=== PATIENT | male | born 1950 | race Caucasian/White ===

== ENCOUNTER 2016-12-27 15:24 | Inpatient (IN) ==
[2016-12-27] MEDS ORDERED: ASPIRIN PO STA (15:42)
[2016-12-27 15:55] LABS: MANUAL DIFF NEEDED? NO
[2016-12-27 15:57] LABS: BASO% 0.2 % (0.0-0.8); EOS% 3.1 % (0.0-10.0); HEMATOCRIT 40.6 % (42.0-52.0); HEMOGLOBIN 13.7 g/dL (14.0-18.0); IMM GRAN# 0.04 X1000 (0.0-0.04); IMM GRAN% 0.3 % (0.0-0.5); MCH 31.5 PG (27-31); MCHC 33.7 g/dL (33-37); MCV 93.3 FL (81-99); MONO# 1.33 X1000 (0.11-0.59); MONO% 10.2 % (1.7-9.3); MPV 9.6 FL (7.4-10.4); NEUT% 66.2 % (42.2-75.2); PLT 373 X1000 (130-400); RBC 4.35 XMIL (4.7-6.1)
--- NOTE | 2016-12-27 16:10 | EKG Report ---
Test Performed on : 12/27/2016 3:44:45 PM Test Reason : ABNORMAL LABS Blood Pressure : / mmHG Vent. Rate : 101 BPM Atrial Rate : 101 BPM P-R Int : 152 ms QRS Dur : 084 ms QT Int : 370 ms P-R-T Axes : -06 -26 123 degrees QTc Int : [address] \T\ T wave abnormality, consider lateral ischemia Abnormal ECG When compared with ECG of 02-SEP-2016 01:55, T wave inversion now evident in Lateral leads Unconfirmed Result
[2016-12-27 16:11] LABS: INR 0.96; PTT 32.3 Seconds (22.0-36.0)
[2016-12-27 16:25] LABS: AGAP 24; ALBUMIN 3.8 g/dL (3.5-5.0); ALKALINE PHOSPHATASE 123 U/L (32-122); BUN 14 mg/dL (8-22); CALCIUM 9.1 mg/dL (8.8-10.2); CHLORIDE 94 mmol/L (98-107); CK PROFILE 194 U/L (24-204); COSMO 279; GOT 51 U/L (10-34); GPT 67 U/L (10-44); MAGNESIUM 1.8 mg/dL (1.5-2.7); POTASSIUM 3.5 mmol/L (3.5-5.1); SODIUM 135 mmol/L (136-145); TCO2 17 mmol/L (25-35); TOTAL BILIRUBIN 0.23 mg/dL (0.20-1.00); TOTAL PROTEIN 7.4 g/dL (6.3-8.3)
--- NOTE | 2016-12-27 16:41 | Diag Imaging Result Document ---
PROCEDURE NAME: CHEST-2 VIEWS - 12/27/2016 CHEST, TWO VIEWS: INDICATION: Chest pain. COMPARISON: 09/02/2016. FINDINGS: There is cardiomegaly. There is mild fibrosis. The pulmonary vasculature is not congested. No acute infiltrates or effusions are identified. IMPRESSION: 1. Stable cardiomegaly. 2. Mild fibrosis.
[2016-12-27] MEDS ORDERED: LOVENOX 1 MG/KG SUBQ ONE (17:24)
--- NOTE | 2016-12-27 17:24 | PROVIDER DOCUMENTATION ---
This chart was entered by Sudhir Rodrigez Scribe, acting as scribe for Jay Silva MD. HPI-Chest Pain - General Chief Complaint: Abnormal Lab[s] Stated Complaint: ABNOMAL LAB Time Seen by Provider: 12/27/16 16:50 Source: patient Allergies/Adverse Reactions: Patient Allergies Allergy/AdvReac Type Severity Reaction Status Date / Time Penicillins Allergy Mild RASH Verified 12/27/16 16:38 Home Medications: Home Medication List Medication Instructions Recorded Confirmed Last Taken Type Metformin HCl 850 mg PO BID 08/19/13 12/27/16 12/27/16 History Topiramate [Topamax] 50 mg PO BID 08/19/13 12/27/16 12/27/16 History Hydrocodone/Acetaminophen [[place] 1 each PO BID 09/02/14 12/27/16 12/27/16 History 7.5-325 Tablet] Gabapentin [Neurontin] 400 mg PO TID 05/23/15 12/27/16 12/27/16 History Lisinopril/Hydrochlorothiazide 1 each PO DAILY 05/23/15 12/27/16 12/27/16 History [Lisinopril-Hctz 20-12.5 mg Tab] Phenytoin Sodium Extended 200 mg PO BID 09/02/16 12/27/16 12/27/16 History - History of Present Illness-CP Nature of Presenting Problem: patient is a 66 y/o M that presents after having 3 days of chest pain with tingling down bilateral arms. He reports having some nausea and shortness of breath with it. patient has no symptoms today. He went to pcp and he was sent here due to abnormal labs and irregular heart rate. Patient has history HTN, CVA , Diabetes, and 1ppd smoker Location: reports: substernal Chest Pain Radiation: reports: arms (bilateral arms) Severity in ED: moderate Onset/Duration: abrupt, 3 days ago Timing: gone now Context/Activities at Onset: reports: none Modifying Factors: improves with: nothing Associated Symptoms: reports: nausea, shortness of breath. denies: abdominal pain, diaphoresis, dizziness, fever/chills, headache, vomiting Nitro Today/Relief: no nitro taken today Aspirin Treatment Today: 325 mg x 1, provided by ED Similar Symptoms Previously?: No Recently Seen Here or By Another Healthcare Provider: Yes Review of Systems - Adult - REVIEW OF SYSTEMS - ADULT Constitutional: reports: no symptoms reported Eyes: reports: no symptoms reported Ears, Nose, Mouth & Throat: reports: see HPI Cardiovascular: reports: see HPI Respiratory: reports: no symptoms reported Gastrointestinal: reports: no symptoms reported Musculoskeletal: reports: no symptoms reported Integumentary: reports: no symptoms reported Neurological: reports: no symptoms reported Psychiatric: reports: no symptoms reported Endocrine: reports: no symptoms reported, excessive sweating Allergic/Immunologic: reports: no symptoms reported All Other Systems: Reviewed and Negative Past History - Adult - PAST MEDICAL HISTORY-ADULT Review of Records: reports: Old Records Reviewed, Nursing Assessment Review, Medications Reviewed Cardiovascular: reports: HTN Musculoskeletal: reports: arthritis, chronic pain (leg pain) Neurological: reports: CVA, headaches/migraines, Seizures/Epilepsy, other ( brain aneurysm) Endocrine/Immune: reports: Diabetes Other Conditions: reports: skin disorder (skin cancer) - PRIOR SURGERIES/PROCEDURES Surgical/Procedure History: reports: orthopedic (extremity) (Right arm, right leg, left knee) - IMMUNIZATION STATUS Childhood Immunizations: UTD Flu Vaccine: NUTD - FAMILY HISTORY Family History: reviewed, not pertinent - SOCIAL HISTORY Smoking: cigarettes, less than 1 pack/day Living Situation: alone Physical Exam-General - PHYSICAL EXAM-ADULT Initial Vital Signs Reviewed: Yes - CONSTITUTIONAL General Appearance: alert, no apparent distress - EYES Eyes: PERRL/EOMI, pink conjunctivae - HEAD, EARS, NOSE, MOUTH & THROAT HENMT: normocephalic/atraumatic, moist mucous membranes, normal ENT inspection - NECK Neck: non-tender, full range of motion, normal inspection - RESPIRATORY Respiratory: lungs clear, normal breath sounds, no respiratory distress, no accessory muscle use - CARDIOVASCULAR Cardiovascular: regular rate, rhythm, no edema, no murmur - GASTROINTESTINAL (ABDOMEN) Abdominal Exam: normal bowel sounds, non tender, soft - MUSCULOSKELETAL Extremity: normal range of motion, normal inspection, no pedal edema - SKIN Integumentary: normal color, warm/dry - NEUROLOGIC Neurologic: grossly normal, no motor/sensory deficits - PSYCHIATRIC Psych/Mental Status: normal mood/affect, normal thought content, normal thought process, oriented x 3 Progress - PLAN OF CARE/RESULTS Progress/Plan/Lab Results: Vital Signs - 8 hr 12/27/16 15:34 Temperature 97.5 F L Pulse Rate 104 H Respiratory Rate 20 Blood Pressure 125/67 O2 Sat by Pulse Oximetry 97 Laboratory Results - last 24 hr 12/27/16 12/27/16 12/27/16 15:38 15:38 15:38 WBC 12.99 H RBC 4.35 L Hgb 13.7 L Hct 40.6 L MCV 93.3 MCH 31.5 H MCHC 33.7 RDW Std Deviation 14.1 Plt Count 373 MPV 9.6 Immature Gran % (Auto) 0.3 Neut % (Auto) 66.2 Lymph % (Auto) 20.0 L Wells % (Auto) 10.2 H Eos % (Auto) 3.1 Baso % (Auto) 0.2 Immature Gran # (Auto) 0.04 Neut # (Auto) 8.60 H Lymph # (Auto) 2.60 Wells # (Auto) 1.33 H Eos # (Auto) 0.40 Baso # (Auto) 0.02 PT INR PTT (Actin FS) D-Dimer 0.32 Sodium 135 L Potassium 3.5 Chloride 94 L Carbon Dioxide 17 L Anion Gap 24 BUN 14 Creatinine 0.8 Estimated GFR/1.73 m2 > 60 BUN/Creatinine Ratio 18 Glucose 249 H Calculated Osmolality 279 Calcium 9.1 Magnesium 1.8 Total Bilirubin 0.23 AST 51 H ALT 67 H Alkaline Phosphatase 123 H Creatine Kinase 194 Troponin T [id number]-[id number] Pept Total Protein 7.4 Albumin 3.8 Globulin 3.6 Albumin/Globulin Ratio 1.1 12/27/16 12/27/16 12/27/16 15:38 15:38 15:38 WBC RBC Hgb Hct MCV MCH MCHC RDW Std Deviation Plt Count MPV Immature Gran % (Auto) Neut % (Auto) Lymph % (Auto) Wells % (Auto) Eos % (Auto) Baso % (Auto) Immature Gran # (Auto) Neut # (Auto) Lymph # (Auto) Wells # (Auto) Eos # (Auto) Baso # (Auto) PT 10.0 INR 0.96 PTT (Actin FS) 32.3 D-Dimer Sodium Potassium Chloride Carbon Dioxide Anion Gap BUN Creatinine Estimated GFR/1.73 m2 BUN/Creatinine Ratio Glucose Calculated Osmolality Calcium Magnesium Total Bilirubin AST ALT Alkaline Phosphatase Creatine Kinase Troponin T 1.100 H* [id number] Pept 1238 H Total Protein Albumin Globulin Albumin/Globulin Ratio Orders Category Date Time Status Cardiac Monitoring DIRECTED Care 12/27/16 15:42 Active Oxygen Therapy- ED Nursing DIRECTED Care 12/27/16 15:42 Active Saline Loc NOW Care 12/27/16 15:42 Active CHEST-2 VIEWS [RAD] Stat Exams 12/27/16 15:42 Completed CBC WITH ELECTRONIC DIFF [HEME] Stat Lab 12/27/16 15:38 Completed CK PROFILE [SP CHEM] Stat Lab 12/27/16 15:38 Completed COMPREHENSIVE METABOLIC PANEL [CHEM] Stat Lab 12/27/16 15:38 Completed D-DIMER [CHEM] Stat Lab 12/27/16 15:38 Completed MAGNESIUM [CHEM] Stat Lab 12/27/16 15:38 Completed PRO B-NATRIURETIC PEPTIDE Stat Lab 12/27/16 15:38 Completed PROTIME WITH INR [COAG] Stat Lab 12/27/16 15:38 Completed PTT [COAG] Stat Lab 12/27/16 15:38 Completed TROPONIN T Stat Lab 12/27/16 15:38 Completed Aspirin Med 12/27/16 15:42 Discontinued 325 mg PO STAT STA EKG [EKG] Stat Ther 12/27/16 15:42 Draft Result Diagrams: 12/27/16 15:38 12/27/16 15:38 - XRAY 1 XRAY Study: Chest Impression: Abnormal XRAY Interpretation: mild CMG, fibrosis - CONSULTS/PCP/HOSPITALIST Notification #1 *Consult/PCP/Hospitalist*: Time Discussed: 17:12 Reason/Comments: will consult, admit to hospitalist Consult Disposition: Admit Departure - Departure Time of Disposition Decision: 17:22 DIAGNOSIS: Myocardial infarction Disposition: ADMITTED INPATIENT 09 Certified Medical Emergency: Emergent Condition: Stable Referrals and Follow-Ups: Aimee Ferreira CRNP [Primary Care Provider] - Attestation - Physician/ JESSICA Attestation Patient care was provided by Advanced Practice Provider:: Yes Advanced Practice Provider documentation review:: The Mid-level provider documentation, treatment plan and medical decision making was reviewed by the physician who agrees with all treatment and medical decision making by the MLP. The physician spent face to face time with patient:: Yes Advanced Practice Provider documentation review:: The physician spent face to face time with this patient and agrees with all MLP documentation, treatment, and medical decision making by the MLP. See provider notes for further information. This chart was documented by the indicated scribe, (Sudhir Rodrigez, Scribe) and accurately reflects the services I performed and decisions made by , Jay Silva MD, as attested by the provider's signature.
[2016-12-27] MEDS ORDERED: LOVENOX SUBQ ONE (17:45)
--- NOTE | 2016-12-27 17:50 | ED EKG INTERP ---
This chart was entered by Sudhir Rodrigez Scribe, acting as scribe for Jay Silva MD. EKG Interpretation - EKG Time of EKG reading by physician:: 15:44 EKG Read and Signed by:: Jay Silva EKG Interpretation (*Must complete 3 of following elements*): Abnormal Rate: 101 Rhythm: Sinus tachycardia Dagmar: normal QRS: normal KS Interval: normal ST Wave: non-specific ST changes This chart was documented by the indicated scribe, (Sudhir Rodrigez Scribe) and accurately reflects the services I performed and decisions made by Shira russell Christophe I, MD, as attested by the provider's signature.
[2016-12-27] MEDS ORDERED: DUONEB (A & A) INH PRN (18:05)
[2016-12-27] MEDS: LOVENOX SUBQ SCH (18:11)
[2016-12-27 18:42] LABS: ACETAMINOPHEN < 1.2 ug/mL (10-30); HEMOGLOBIN A1C 7.2 % (4.8-6.0)
[2016-12-27 18:52] LABS: FREE T4 1.11 ng/dL (0.93-1.70)
--- NOTE | 2016-12-27 18:53 | HISTORY AND PHYSICAL ---
PRIMARY CARE PHYSICIAN: DANG Francisco CHIEF COMPLAINT: Chest pain. HISTORY OF PRESENT ILLNESS: Mr. Javier is a 66-year-old, male with a significant medical history of intracranial hemorrhage, status post craniotomy 5 years ago at [facility], also with a history of nicotine dependence, hypertension, diabetes mellitus, seizure disorder, diabetic neuropathy, who presents with 4 days of chest pain. Symptoms began on Monday, at rest he had sudden onset of midsternal chest pressure radiating into the jaw lasting 15-20 minutes at a time, roughly 4-5 times a day. Each episode was associated with nausea, but no vomiting, shortness of breath or diaphoresis. He denies that the symptoms worsened with every episode. He went to his primary care on Monday who called him back today and told him he needed to come to the ER after blood work was drawn yesterday. He denies any neurologic complaints. He does report worsening lower extremity edema over the past 3 months. He has also had worsening shortness of breath and difficulty breathing at night when he sleeps. When he got to the ER labs and diagnostics were done, he had a critical troponin of 1.1 with a slightly elevated CK. He was also noted to have a fairly significant metabolic anion gap acidosis and leukocytosis. He denies any fevers or chills, his EKG shows sinus rhythm with nonspecific ST changes in the lateral leads. Cardiology has been consulted and full dose anticoagulation has been started with the diagnosis of NSTEMI. PAST MEDICAL HISTORY: 1. Intracranial hemorrhage secondary to aneurysm. 2. Status post craniotomy roughly 5 years ago. 3. Nicotine dependence. 4. Hypertension. 5. Diabetes mellitus. 6. Diabetic neuropathy. 7. Seizures. 8. Skin cancer. PAST SURGICAL HISTORY: He has had multiple orthopedic surgeries and a craniotomy with brain aneurysm clipping 4-5 years ago. SOCIAL HISTORY: The patient continues to smoke upwards of a pack a day. He has a remote history of alcohol dependence. He has not had alcohol in multiple years. He denies illicit drug use. He is and lives alone. FAMILY HISTORY: Significant for hypertension. REVIEW OF SYSTEMS: Fourteen-point review of systems obtained and found to be negative with the exception of the HPI. MEDICATIONS: Neurontin 400 mg p.o. t.i.d., Adrian as directed, lisinopril/hydrochlorothiazide 1 daily, metformin 850 mg b.i.d., phenytoin 200 mg b.i.d., Topamax 50 mg b.i.d. ALLERGIES: Penicillin. PHYSICAL EXAMINATION: VITAL SIGNS: Blood pressure is 113/69, heart rate 98, respiratory rate is 25, O2 saturation 97% on room air. Temperature is 97.5 degrees. GENERAL: This is an overweight, male, lying in hospital bed in no acute distress. NEUROLOGIC: The patient is awake, alert, oriented. He follows commands without focal deficits. HEENT: Head is atraumatic and normocephalic. His pupils are equal, round, reactive to light. His oral mucosa is moist. Trachea is midline. No JVD. CHEST: Diminished at the bases, but clear to auscultation bilaterally. CARDIOVASCULAR: Regular rate and rhythm. S1-S2 is noted. No murmurs. GI: Soft, nondistended, nontender. Bowel sounds positive. EXTREMITIES: With trace to 1+ pedal edema bilaterally. Pulses palpable, but diminished. DIAGNOSTIC DATA: EKG shows normal sinus rhythm with nonspecific ST and T abnormalities in the lateral leads, as well as the anterior leads. Chest x-ray shows stable cardiomegaly with mild fibrosis. LABORATORY DATA: WBC 12.99, hemoglobin 13.7, hematocrit 40.6, platelet count 373,000. PT 10, INR 0.96, D-dimer 0.32, sodium 135, potassium 3.5, chloride 94, CO2 17, anion gap 24, BUN 14, creatinine 0.8, glucose 249, calcium 9.1, magnesium 1.8. AST 51, ALT 67, alkaline phosphatase 123, CK 194, troponin 1.1. ProBNP 1238. Albumin 3.8. ASSESSMENT AND PLAN: 1. [id number] myocardial infarction: Patient will be admitted to the cardiac intensive care unit, we will start Lovenox 1 mg/kg b.i.d. We will also give aspirin full dose daily as well as metoprolol 12.5 mg b.i.d. Cardiology has been consulted. The patient will be nothing per oral after midnight in anticipation of left heart catheterization in the morning. We will monitor telemetry serial enzymes and electrocardiograms. Echocardiogram has also been ordered. 2. Congestive heart failure: Patient has a history consistent with congestive heart failure, including lower extremity edema, paroxysmal nocturnal dyspnea and orthopnea. We will check an echocardiogram and monitor strict input and output and daily weights. His lungs are clear. His chest x-ray does not show anything acute so we will hold off on the Lasix at this time. He is on lisinopril, which we will continue. 3. Significant metabolic anion gap acidosis: Unclear of the etiology at this time. We are going to check a lactic acid as well as acetone levels. He does have a blood sugar of 249 in the setting of AMI, diabetic ketoacidosis should be evaluated as well as lactic acidosis. I will trend the basic metabolic panel daily. 4. Leukocytosis: Likely reactive to his myocardial infarction, patient denies any fevers or chills. No cough with sputum expectoration. We will monitor this as well. 5. Diabetes mellitus: Pattern blood sugars and sliding scale insulin given likelihood of IV dye in the morning. We will hold off on the metformin, check a hemoglobin A1c and try to improve lifestyle modification. 6. Nicotine dependence: Patient has been highly advised to quit smoking. I will write a nicotine patch and continue daily counseling. 7. History of intracranial hemorrhage: Patient denies any neurologic symptoms. Exam is nonfocal. We will monitor this closely. 8. Deep venous thrombosis prophylaxis is provided with Lovenox. Further recommendations to follow. Dictated by DANG Coburn for Bertha Orlando MD cc: DANG Coburn MD Anna M. Dumas, CRNP
[2016-12-27] MEDS: DUONEB (A & A) INH SCH (19:05)
[2016-12-27] MEDS ORDERED: LIPITOR PO SCH (21:00)
[2016-12-27] MEDS ORDERED: HUMALOG SUBQ SCH (21:00)
[2016-12-28] MEDS: NORCO-7.5 PO SCH ×3 (00:25→19:02)
[2016-12-28] MEDS: DILANTIN PO SCH ×3 (00:26→19:02)
[2016-12-28] MEDS: NICODERM PATCH TD SCH ×3 (00:26→21:48)
[2016-12-28] MEDS: LOPRESSOR PO SCH ×3 (00:27→19:01)
[2016-12-28] MEDS: TOPAMAX PO SCH ×3 (00:27→19:01)
[2016-12-28] MEDS: HUMULIN R SUBQ SCH ×5 (00:27→21:48)
[2016-12-28] MEDS ORDERED: PNEUMOVAX 23 IM ONE (01:00)
[2016-12-28 01:12] LABS: URINE CULTURE NEEDED? NO; URINE MICRO REVIEW NEEDED? NO; URINE SOURCE CLEAN CATCH
[2016-12-28 01:15] LABS: BILIRUBIN URINE NEGATIVE (NEGATIVE); BLOOD URINE NEGATIVE (NEGATIVE); COLOR YELLOW; GLUCOSE URINE NEGATIVE (NEGATIVE); LEUKOCYTES URINE NEGATIVE (NEGATIVE); NITRITE URINE NEGATIVE (NEGATIVE); PROTEIN URINE NEGATIVE (NEGATIVE); TURBIDITY URINE CLEAR (CLEAR); UR EPITHELIAL CELLS <10 /HPF (<10); URINE BACTERIA NEGATIVE /HPF; URINE RBC <10 /HPF (<10); URINE WBC <10 /HPF (<10); UROBILINOGEN URINE NORMAL (NORMAL)
[2016-12-28] MEDS: DUONEB (A & A) INH SCH ×7 (03:32→23:09)
[2016-12-28 06:23] LABS: HEMATOCRIT 40.9 % (42.0-52.0); HEMOGLOBIN 13.6 g/dL (14.0-18.0); MCH 31.7 PG (27-31); MCHC 33.3 g/dL (33-37); MCV 95.3 FL (81-99); RBC 4.29 XMIL (4.7-6.1)
[2016-12-28] MEDS: LOVENOX SUBQ SCH ×2 (06:31→17:28)
--- NOTE | 2016-12-28 06:45 | EKG Report ---
Test Performed on : 12/28/2016 06:21:12 AM Test Reason : [place] Blood Pressure : / mmHG Vent. Rate : 085 BPM Atrial Rate : 085 BPM P-R Int : 148 ms QRS Dur : 086 ms QT Int : 390 ms P-R-T Axes : 001 -24 139 degrees QTc Int : 464 ms Normal sinus rhythm. Nonspecific ST and T wave abnormality Prolonged QT Abnormal ECG When compared with ECG of 27-DEC-2016 15:44, No significant change was found Confirmed by Bruce WELSH, Morgan Jacobson ([id number]) on 12/29/2016 6:21:13 PM
[2016-12-28 06:48] LABS: INR 0.96
[2016-12-28 06:53] LABS: AGAP 18; BUN 15 mg/dL (8-22); CALCIUM 9.3 mg/dL (8.8-10.2); CHLORIDE 98 mmol/L (98-107); COSMO 275; HDL 35 mg/dL (35-55); POTASSIUM 4.2 mmol/L (3.5-5.1); SODIUM 136 mmol/L (136-145); TCO2 20 mmol/L (25-35); TRIGLYCERIDES 688 mg/dL (39-160)
[2016-12-28] MEDS: NITROGLYCERIN TOP SCH ×3 (08:33→21:49)
[2016-12-28] MEDS: NEURONTIN PO SCH ×2 (08:33→17:27)
[2016-12-28] MEDS ORDERED: ASPIRIN PO SCH (09:00)
[2016-12-28] MEDS ORDERED: PRINIVIL PO SCH (09:00)
--- NOTE | 2016-12-28 09:05 | EKG Report ---
Test Performed on : 12/28/2016 07:54:30 AM Test Reason : SD Blood Pressure : / mmHG Vent. Rate : 087 BPM Atrial Rate : 087 BPM P-R Int : 156 ms QRS Dur : 086 ms QT Int : 402 ms P-R-T Axes : -22 -22 130 degrees QTc Int : 483 ms Normal sinus rhythm. ST \T\ T wave abnormality, consider anterolateral ischemia Prolonged QT Abnormal ECG When compared with ECG of 28-DEC-2016 06:21, (Unconfirmed) No significant change was found Confirmed by Bruce WELSH, Morgan Jacobson ([id number]) on 12/29/2016 6:21:45 PM
--- NOTE | 2016-12-28 09:42 | ECHO REPORT ---
ORDER DATE: 12/27/2016 PROCEDURE: Two-dimensional echocardiogram. DATE OF STUDY: 12/27/2016. ECHOCARDIOGRAPHIC MEASUREMENTS: 1. Interventricular septum 1.0. 2. Left ventricular posterior wall 1.1. 3. Diastolic diameter 5.3. 4. Left atrium 2.9. 5. Aorta 4. INTERPRETATION: 1. Aortic valve leaflets were trileaflet. 2. Mitral valve was normal. 3. Tricuspid valve was normal. 4. Pulmonic valve was normal. There is trace pulmonary regurgitation. 5. Normal left ventricular cavity size. Estimated ejection fraction of 55% to 60%. 6. Doppler studies revealed trace mitral regurgitation. 7. Mild tricuspid regurgitation. Peak velocity across the tricuspid valve was 2.3 m/sec. 8. There is no pericardial effusion or obvious intracardiac mass or thrombus. cc: MD Casey Hightower CRNP
--- NOTE | 2016-12-28 10:53 | CONSULTATION ---
DATE OF CONSULTATION: 12/28/2016 REFERRING PHYSICIAN: Hospitalist service. REASON FOR CONSULTATION: Chest pain, elevated troponins. HISTORY: Mr. Javier is a 66-year-old male who is known to our service. He presented to the emergency room yesterday, December 27, upon advice of his primary care provider because of abnormal EKG. The patient states that on December 24Monday, he started having pains in the center of the chest. They would come in waves of discomfort lasting 2-3 hours and then it would subside. He would feel weak, lightheaded, a little short of breath and nauseous. On December 25, he felt again the same way, and on December 26, he went to the primary care provider who did an EKG that appeared to be abnormal. She recommended presentation to the emergency room. In the ER, he was seen on December 27 about 1 or 2 o'clock. They did an EKG at 3:44 p.m. that showed sinus rhythm with a diffuse T-wave abnormality. Followup EKG done this morning at 6:21 a.m. shows a nonspecific T-wave change. The patient says that overnight he has had 1 or 2 bouts of very short-lasting discomfort in the chest, nothing like what he experienced on Monday or Monday. He is feeling better at this time. PAST HISTORY: Negative for coronary heart disease or stroke. He has had previous brain aneurysms that have been treated. He does have a history of diabetes mellitus. He has a history of hypertension. He is obese. His body mass index is 32. He has a surgical history that is positive for clipping of aneurysms of the brain. First, they did a craniotomy on the right side of the brain in November 2006, and subsequently in February 2007, they did a left craniotomy and they took care of aneurysms on the left side. He has not had any trouble since then. He has had a previous embolism and insertion of Jese filter. The patient has a history of knee surgery, arm surgery, wrist surgery, arthroscopic surgery of the knee. He has a longstanding history of seizure disorder. In fact, he was seen in the hospital not long ago back in August because of what appeared to be a seizure event. SOCIAL HISTORY: He is a . He has one grownup child 42 years old. He is a smoker of 1 pack a day. 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 He does not drink alcohol. REVIEW OF SYSTEMS: He has been complaining of pain on both legs when walking for the past few weeks. He has not had any chest pain up until recently. Some limitation to ambulate because of multiple arthritic complaints. No weight loss or weight gain. No abdominal complaints. No lung disorder that he is aware of. No other active issues that he is aware of. HOME MEDICINES LISTED: Phenytoin 300 at bedtime, neomycin/polymyxin eardrops, metoprolol XL 25 daily, gabapentin 400 to 800 at bedtime, lisinopril 40 daily, gabapentin 400 to 800 twice a day, Phenergan 200 in the morning, metformin 850 twice a day, topiramate 50 mg twice a day. ALLERGIES: He is allergic to penicillin. PHYSICAL EXAMINATION TODAY: Vital signs: Blood pressure is 123/75, temperature 97.9, pulse 88, respirations 18. General: He is awake, alert, oriented, in no distress. HEENT: Unremarkable. No cervical bruits. Chest: Diminished breath sounds bilaterally. No rales. Cardiac: Heart sounds are regular and rhythmic, no gallop or murmur. Abdomen: Obese, nontender, no masses, no hepatomegaly. Extremities: Diminished pulses bilaterally. Neurological: Follows commands, moves four extremities. BLOOD WORK TODAY: Sodium 136, potassium 4.2, BUN 15, creatinine 0.8. CK is 149, troponin 1.2. Yesterday, troponin was 1.1 and then dropped to 1.4 and then 1.2. His cholesterol panel: Total cholesterol 242, triglycerides 688, HDL 35. His urine analysis is negative. D-dimer is negative. Pro time PTT normal. Hemoglobin is 13.6. Platelet count is 358,000. White count 9130. IMPRESSION: 1. Patient presenting to the hospital with [id number] myocardial infarction. He does have an abnormal EKG. He does have several risk factors for coronary heart disease. 2. History of hypertension. 3. History of diabetes mellitus type 2. 4. History of seizure disorder. 5. History of clipping of aneurysms of the brain. 6. History of pulmonary embolism status post IVC Jese filter. 7. Obesity. 8. Tobacco abuse. RECOMMENDATION: The patient is strongly counseled against smoking cigarettes. The patient will be kept on Lovenox, aspirin. We will obtain a resting gated myocardial perfusion study to assess his ejection fraction accurately and also to determine which part of his myocardium has been affected by the heart attack. I would propose to him to pursue the heart catheterization tomorrow morning if his condition remains stable to determine the area that has been affected by the heart attack and then consider revascularization if appropriate. The benefits, risks, complications of cardiac catheterization have been discussed. He is in agreement. He understands that he has to quit smoking. He is going to comply. We will go ahead and continue cholesterol-lowering medicines. I would probably like to measure a direct LDL on him. Further advice will be forthcoming. Thank you for the opportunity to participate in his evaluation. cc: Silver Chacko MD
--- NOTE | 2016-12-28 13:32 | PROGRESS NOTE ---
DATE: 12/28/2016 SUBJECTIVE: The patient states that he does not feel good but he is denying having any chest pain or shortness of breath at this time. OBJECTIVE: Vital Signs: Temperature 98.6 degrees, blood pressure 117/61, heart rate 95, respirations 14. O2 saturation 96% on room air. General: This is an elderly obese male, sitting in bed, in no acute distress. HEENT: Head normocephalic atraumatic. Heart: S1, S2. Normal. Regular rate and rhythm. Lungs: Clear to auscultation bilaterally. No crackles. No rales. Abdomen: Positive bowel sounds. Soft, obese, nontender, nondistended. Extremities: No edema. No cyanosis. No calf tenderness. Neurologic: The patient is alert and oriented x3. LABORATORY DATA: White blood cell count 9.1, hemoglobin 13, hematocrit 40, platelets 358,000. INR is 0.9, sodium 136, potassium 4.2, chloride 98, CO2 20, BUN 15, creatinine 0.8, glucose 147. Troponin 1.16, triglycerides 688. Total cholesterol 242, HDL 35. UA negative. ASSESSMENT AND PLAN: 1. Non ST-elevation myocardial infarction. Continue on the current cardiac medications. The patient is scheduled for a stress test today. Cardiology is following. 2. Morbid obesity. Aware. 3. Uncontrolled diabetes mellitus type 2. Continue on sliding scale insulin. 4. Seizure disorder. The patient has not had any seizure activity. Continue on Topamax and Dilantin. 5. Hypertension. Controlled. 6. Tobacco dependence. The patient has been counseled about smoking cessation. 7. Deep vein thrombosis prophylaxis. The patient is currently on full dose Lovenox. cc: Bertha Orlando MD
[2016-12-28] MEDS ORDERED: MISC. PHARMACY COMMUNICATION SCH (17:45)
[2016-12-28] MEDS ORDERED: LIPITOR PO SCH (18:15)
[2016-12-28] MEDS: MORPHINE IV PRN (21:49)
[2016-12-29] MEDS: MORPHINE IV PRN ×2 (02:47→15:42)
[2016-12-29] MEDS: NITROGLYCERIN TOP SCH ×2 (02:48→11:27)
[2016-12-29] MEDS: DUONEB (A & A) INH SCH ×4 (03:29→15:45)
[2016-12-29] MEDS ORDERED: NS 1,000 ML ONE (03:41)
--- NOTE | 2016-12-29 04:21 | Diag Imaging Result Document ---
PROCEDURE NAME: MYOCARDIAL PERFU SCAN, REST - 12/28/2016 STUDY: Rest-only sestamibi study. SUMMARY: The patient was administered 36.3 mCi of technetium-99m sestamibi after which gated resting cardiac images were obtained. Review of these images demonstrated moderate lead diminished activity in the lateral wall of the left ventricle from base to apex on rest only images. Gated images demonstrate a calculated left ventricular ejection fraction of 68% with symmetrical wall motion/thickening. CONCLUSIONS: Rest-only sestamibi myocardial perfusion imaging demonstrating moderately diminished activity in the entire lateral wall with corresponding preserved regional wall motion. Normal left ventricular systolic function demonstrated. Clinical correlation recommended. cc: MD Silver Hardy MD
[2016-12-29 05:28] LABS: HEMATOCRIT 39.6 % (42.0-52.0); MCH 31.6 PG (27-31); MCHC 32.8 g/dL (33-37); MCV 96.1 FL (81-99); MPV 9.7 FL (7.4-10.4); RBC 4.12 XMIL (4.7-6.1)
[2016-12-29] MEDS: NEURONTIN PO SCH ×2 (05:30→12:16)
[2016-12-29] MEDS: NORCO-7.5 PO SCH (05:31)
[2016-12-29] MEDS: LOPRESSOR PO SCH (05:31)
[2016-12-29] MEDS: LOVENOX SUBQ SCH (05:32)
[2016-12-29] MEDS: DILANTIN PO SCH (05:35)
[2016-12-29 05:46] LABS: AGAP 18; BUN 14 mg/dL (8-22); CALCIUM 9.1 mg/dL (8.8-10.2); CHLORIDE 98 mmol/L (98-107); COSMO 279; POTASSIUM 4.4 mmol/L (3.5-5.1); SODIUM 137 mmol/L (136-145); TCO2 21 mmol/L (25-35)
[2016-12-29] MEDS ORDERED: LOPRESSOR PO SCH (06:00)
[2016-12-29] MEDS ORDERED: PRINIVIL PO SCH (06:00)
[2016-12-29] MEDS ORDERED: ASPIRIN PO SCH (06:00)
[2016-12-29] MEDS: TOPAMAX PO SCH (06:01)
[2016-12-29] MEDS: HUMULIN R SUBQ SCH ×3 (06:36→16:42)
[2016-12-29] MEDS ORDERED: NS 250 ML ONE (08:16)
[2016-12-29] MEDS ORDERED: NITROGLYCERIN ONE (08:16)
[2016-12-29] MEDS ORDERED: HEPARIN 1000 UNITS/NS 2,000 UNIT/1,000 ML IV.SOLN ONE (08:16)
[2016-12-29] MEDS ORDERED: DEMEROL ONE ×2 (09:20→10:08)
[2016-12-29] MEDS ORDERED: VERSED ONE (09:20)
[2016-12-29 09:45] LABS: HEPATITIS PROFILE ACUTE SEE COMMENTS
[2016-12-29] MEDS: NICODERM PATCH TD SCH (11:27)
[2016-12-29] MEDS ORDERED: NS 1,000 ML IV SCH (12:00)
[2016-12-29 12:25] VITALS: BP 145/80
--- NOTE | 2016-12-29 12:33 | CARDIAC CATH REPORT ---
DATE: 12/29/2016 PROCEDURE: 1. Left heart catheterization. 2. Selective coronary angiogram. 3. Left ventriculogram. 4. Opacification of the right femoral artery with deployment of a 6-[place] Angio-Seal device. HISTORY: This 66-year-old male presented to the hospital with a 2- to 3-day history of chest pains. Upon presentation, EKG was noted to be abnormal, and his troponin levels were positive. The patient was placed on Lovenox, aspirin, nitroglycerin paste, and beta-blockers. His pain seemed to improve. We did a resting gated myocardial perfusion study on December 28 that showed a defect in the lateral wall consistent with a circumflex lesion. Because of his presentation and the recurrence of chest pain over the course of the past few days, we recommended a heart catheterization to assess his coronary anatomy and offer a method of revascularization. Benefits, risks, complications were discussed with him in detail. He understood, requested to proceed. DESCRIPTION OF PROCEDURE: The patient came into the cardiac general laborer in the fasting state. The right groin was prepped and draped in sterile fashion, anesthetized with lidocaine 1%. The patient received a total of 3 doses of Demerol 25 mg and 2 doses of Versed 1 mg for sedation. The right groin was anesthetized with lidocaine 1%. A 6-[place] sheath was inserted into the right femoral artery by following the modified Seldinger technique. Using 6-[place] 4 left and right Lakesha catheters, the coronary artery was opacified sequentially. Thereafter, the aortic valve was negotiated with a right [place]ha catheter. Left ventricular pressure was determined. Left ventriculogram was performed in 60-degree MALAY projection and 30- degree TABATHA projection by hand injection. At the end of the procedure, we reviewed the films, and we felt that the patient had significant 3- vessel disease and decided to recommend open heart surgery, or at least consultation with cardiovascular surgeons prior to percutaneous intervention. The sheath was opacified, and Angio- Seal device was deployed successfully. The patient tolerated the procedure well without any obvious complications. SUMMARY OF THE HEMODYNAMIC FINDINGS: Central aortic pressure 116/68, left ventricular pressure 104/15. Post LV gram 100/15. Final central aortic pressure 102/80. SUMMARY OF THE ANGIOGRAPHIC FINDINGS: 1. Left main coronary artery: This vessel is diffusely calcified, and it shows decreased lumen. I believe there is a stenosis in the order of 40% to 45% involving the left main. The left main divides into LAD and circumflex. 2. Left anterior descending coronary artery: This vessel shows calcification proximally. At the junction of the mid to distal third, there is a 50% to 60% stenosis. The apical LAD is very tiny as far as caliber. 3. Circumflex coronary artery: The circumflex is a nondominant vessel. It shows a proximal stenosis of about 50%. Just before the stenosis, it gives rise to a high lateral branch which is small, about 1.5 mm in caliber. Thereafter, the circumflex gives rise to two terminal branches. One is a A-V branch that is tortuous and gives rise to a sinus adam branch. The other one is a significant, good-sized lateral branch, caliber of at least 2.5 mm, that shows a severe 80% to 90% stenosis with some haziness consistent with possible thrombus. The vessel is suitable for bypass grafting. 4. Right coronary artery: The right coronary artery is a diffusely diseased dominant vessel. The lumen of the right coronary artery at the junction of the proximal and middle third is decreased by at least 60% to 70%. I suspect this is significant. More distally, the right coronary artery gives rise to several tortuous posterior descending branch and posterolateral vessels. The distal right coronary artery may be suitable for bypass grafting. LEFT VENTRICULOGRAM: Left ventriculogram in the 30-degree TABATHA projection and 60-degree MALAY projection reveals hyperdynamic contractility. Ejection fraction is 65% to 70% with focal area of hypokinesis involving the basal lateral wall. OPACIFICATION OF THE RIGHT FEMORAL ARTERY: The right femoral artery is unremarkable. Angio-Seal device was deployed successfully. IMPRESSION: In summary, this study shows: 1. Three-vessel coronary artery disease. A 40% stenosis of the left main, 50% to 60% apical LAD, 50% proximal circumflex, 80% to 90% major lateral branch of the circumflex, culprit vessel for the [id number] HI, and diffusely diseased right coronary artery in the order of 60% to possibly 70% at the junction of the proximal and middle third. 2. Hyperdynamic LV with a focal area of hypokinesis in the basal lateral wall. 3. Normal LVEDP. 4. Unremarkable right femoral artery. 5. No aortic stenosis, no mitral regurgitation. RECOMMENDATION: The patient is advised at this time to consider pursuing cardiovascular surgical consultation for possible bypass surgery. He has left main disease as well as proximal circumflex prior to the severe 90% stenosis. He is probably not the best candidate for percutaneous intervention. I explained this to him. He is in agreement. Will arrange for transfer to [facility] for expert opinion from cardiovascular surgeons and interventional cardiologists. cc: Silver Chacko MD
--- NOTE | 2016-12-30 11:54 | DISCHARGE SUMMARY ---
ADMISSION DATE: 12/27/2016 DISCHARGE DATE: 12/29/2016 FINAL DISCHARGE DIAGNOSES: 1. Non ST-elevation myocardial infarction. 2. Severe triple vessel coronary artery disease. 3. Hypertension. 4. Diabetes mellitus type 2. 5. Morbid obesity. 6. Tobacco dependence. 7. Dyslipidemia. CONSULTATION REQUESTED DURING THIS HOSPITAL STAY: Cardiology consultation with Dr. Chacko. PROCEDURE PERFORMED DURING THIS HOSPITALIZATION: Left heart catheterization performed on 12/29/2016 that revealed severe 3-vessel disease. HOSPITAL COURSE: Mr. Javier is a 66-year-old male with a history of multiple medical problems, who initially presented to the ER with a chief complaint of chest pain and generalized weakness. On admission, the patient was noted to have a troponin of 1.4 with an abnormal EKG. In light of this finding, the patient was admitted to the hospitalist service and cardiology was consulted. The patient was started on aspirin, full dose Lovenox, a beta dona, statin therapy and an FORTINO inhibitor. The following day, a rest only myocardial perfusion scan was performed which revealed moderately diminished activity in the entire lateral wall of the left ventricle. In light of this finding, it was decided that the patient would benefit from a left heart catheterization. The left heart catheterization was performed on 12/29/2016, and it revealed severe 3-vessel disease. After this was found, it was recommended that the patient be transferred to [facility] for consideration of possible open heart surgery. DISCHARGE MEDICATIONS: 1. Aspirin 325 mg p.o. daily. 2. Lipitor 40 mg p.o. at bedtime. 3. Lovenox 100 mg subcutaneous every 12 hours. 4. Neurontin 400 mg p.o. 3 times a day. 5. Lisinopril 10 mg p.o. daily. 6. Metoprolol 12.5 mg p.o. twice a day. 7. Dilantin 200 mg p.o. twice a day. 8. Topamax 50 mg p.o. twice a day. 9. NicoDerm patch 14 mg transdermal daily. 10. Nitroglycerin 1 inch topical every 6 hours. DISPOSITION: The patient will be transferred to [facility] today. cc: Bertha Orlando MD
== END 2016-12-29 16:45 | disposition short-term general hospital (02) ==
LOC: ED 15:24 → 3S 18:54 → SUATTDRO 18:54 → 3S 19:35
PROVIDERS: ATTEND Internal Medicine